=== PATIENT | female | born 1950 | race Caucasian/White ===

== ENCOUNTER 2020-01-22 11:39 | Emergency (ER) | payer MEDICARE, SELFPAY ==
--- NOTE | ~2020-01-22 | XR_ITS ---
EXAMINATION: XR chest 2V EXAM DATE: 01/22/2020 12:09 INDICATION: Cough x 2 days, denies card/lung hx; type 2 diabetic. TECHNIQUE: Frontal and lateral projections of the chest obtained and reviewed. Comparison is made to prior examination from 06/19/2017. FINDINGS: Linear left basilar atelectasis or scarring unchanged. The lungs are otherwise clear. Ther e are no pleural effusions. The cardiomediastinal silhouette is within normal limits. There is no p neumothorax suspected. The bones and soft tissues are unremarkable. IMPRESSION: No acute cardiopulmonary findings. Reviewed, dictated and finalized at location B. [employer] TRA[employer]
[2020-01-22 11:45] VITALS: BP 137/72; PULSE 93; RESP 20; TEMP 36.4; O2SAT 96
--- NOTE | 2020-01-22 11:48 | ED.GENADULT ---
HPI - General Adult General Chief complaint: Upper Respiratory Infection Stated complaint: chest hurts/cough Time Seen by Provider: 01/22/20 11:48 Source: patient Mode of arrival: ambulatory Limitations: no limitations History of Present Illness HPI narrative: 69-year-old female patient presents to the [facility] with complaints of a slight cough that started yesterday. Patient states that when she was coughing and she developed a little bit of pain to the left side of her chest that did not radiate. Patient states that the pain only occurs when she takes a deep breath in or when she coughs. Denies any fevers, body aches or chills. Patient states she did have a rapid Covid test this morning which was negative. Patient denies any abdominal pain, nausea, vomiting or diarrhea. Denies any shortness of breath at this time. Patient states she did take some Tylenol for her symptoms. Related Data Home Medications Medication Instructions Recorded Confirmed empagliflozin [Jardiance] mg 01/22/20 estradiol VAGINAL 01/22/20 folic acid 01/22/20 metformin mg PO 01/22/20 methotrexate sodium 01/22/20 simvastatin mg 01/22/20 sitagliptin [Januvia] mg 01/22/20 Allergies Allergy/AdvReac Type Severity Reaction Status Date / Time Penicillins Allergy Mild Unknown Unverified 01/22/20 11:48 hydroxychloroquine Allergy Unknown Verified 01/22/20 11:48 Review of Systems Review of Systems: Narrative: CONSTITUTIONAL: Denies fever, chills, or sweats. EYES: Denies visual changes, redness, or discharge. ENT: Denies rhinorrhea, congestion, sore throat, or otalgia. CARDIOVASCULAR: Positive left-sided chest pain, denies palpitations, or edema. RESPIRATORY: Positive mild nonproductive cough or dyspnea. GASTROINTESTINAL: Denies abdominal pain, nausea, vomiting, or diarrhea. GENITOURINARY: Denies dysuria or hematuria. SKIN: Denies rash or itching. MUSCULOSKELETAL: Denies back pain, joint pain, or myalgia. NEUROLOGIC: Denies headache, numbness, or weakness. PSYCHIATRIC: Denies anxiety or depression. [facility] Past Medical History Medical History (Updated 01/22/20 @ 12:31 by WHITLEY Arroyo) Arthritis Diabetes Eczema Hypercholesterolemia Hypertension Postmenopausal Urinary tract infection Surgical History Surgical History (Updated 01/22/20 @ 11:50 by WHITLEY Arroyo) H/O inguinal hernia repair History of section, classical X3 History of right knee joint replacement Comments At the time of my signature I agree with nursing past medical history, surgical, social, and family history. There is no relevant family history pertinent to the presenting complaint. Exam Narrative: Exam Narrative: GENERAL: Well-appearing, well-nourished, and in no acute distress. HEAD: Normocephalic, atraumatic. EYES: PERRLA and EOMI. ENT: Nares clear, no rhinorrhea or epistaxis. Mucous membranes moist. Posterior pharynx with no erythema, tonsil enlargement, exudates or lesions present. Bilateral TMs are clear with no erythema or foreign bodies to the canal. NECK: Supple. No lymphadenopathy CHEST: Clear to auscultation. No respiratory distress. Patient able talk in clear complete sentences. No tripoding noted. No tenderness over palpation of the chest wall. HEART: Regular rate and rhythm. No murmur heard. Normal peripheral pulses. ABDOMEN: Soft, nontender, nondistended, normal active bowel sounds. EXTREMITIES: Normal range of motion. No edema. SKIN: Warm, dry, no rash. NEURO: No focal deficits. Alert and oriented x3. Course Reevaluation(s) Reevaluation #1: Reevaluated patient after her x-ray and EKG had resulted. Discussed with her that her x-ray is negative for any acute pneumonia. Discussed with her that her EKG looks overall okay. Discussed with her that if she is concerned about the chest pain we can definitely send her to the emergency department for further evaluation. Discussed with her that the EKG does not show everything that
[2020-01-22 11:50] VITALS: BP 137/72; PULSE 93; RESP 20; TEMP 36.4; O2SAT 96
--- NOTE | 2020-01-22 11:55 | ECG_ITS ---
Measurements Intervals [place] Rate: 83 P: 31 MI: 187 QRS: -16 QRSD: 112 T: 29 QT: 394 QTc: 464 Interpretive Statements SINUS RHYTHM INCOMPLETE RIGHT BUNDLE BRANCH BLOCK BORDERLINE T WAVE ABNORMALITY- ANTERIOR LEADS BORDERLINE ECG Electronically Signed On 01-22-2020 12:51:24 [employer] REPRESENTATIVE by Buck Elmore D.O.
== END 2020-01-22 12:38 | disposition home or self-care (01) ==
PROVIDERS: Emergency Provider Nurse Practitioner Family
DX: J06.9 Acute upper respiratory infection, unspecified (principal); I45.10 Unspecified right bundle-branch block; E11.9 Type 2 diabetes mellitus without complications; E78.00 Pure hypercholesterolemia, unspecified; I10 Essential (primary) hypertension; Z96.651 Presence of right artificial knee joint; M19.90 Unspecified osteoarthritis, unspecified site
CPT/HCPCS: 71046; 93005; 99213; G0463

== ENCOUNTER 2023-08-18 15:08 | Outpatient (CLI) | payer MEDICARE, SELFPAY ==
--- NOTE | ~2023-08-18 | XR_ITS ---
Left Knee Technique: AP, lateral, and sunrise views were obtained. Clinical History: Polyarthritis Findings: No fracture or dislocation is seen. Moderate tricompartmental degenerative spurring present with probable mild lateral compartment narrowing. Soft tissues are unremarkable. No joint effusion i s seen. Impression: Moderate tricompartmental osteoarthritis, as detailed above. Reviewed, dictated and finalized at location . Impression: Moderate tricompartmental osteoarthritis, as detailed above.
== END 2023-08-18 15:09 | disposition home or self-care (01) ==
LOC: ANHIMG 15:13
DX: M17.12 Unilateral primary osteoarthritis, left knee (principal); M25.562 Pain in left knee
CPT/HCPCS: 73562

== ENCOUNTER 2024-05-03 09:47 | Outpatient (CLI) | payer MEDICARE, SELFPAY ==
--- NOTE | ~2024-05-03 | DEXA_ITS ---
Bone Density Report Name: TIERA ALFREDO Age: 73 Sex: Female Ethnicity: White Date of : 1950 Indication: postmenopausal; screening for osteoporosis; height loss; history of glucocorticoids; rheumatoid arthritis; Referring Provider: LORNA, COLE Olmedo Study: Bone densitometry was performed. Exam Date: May 03, 2024 Accession number: [id number] Bone Density: Region BMD T-score Z-score Classification AP Spine(L1-L4) 0.810 -2.2 0.1 Osteopenia Femoral Neck (Left) 0.567 -2.5 -0.6 Osteoporosis Total Hip (Left) 0.597 -2.8 -1.2 Osteoporosis Femoral Neck (Right) 0.585 -2.4 -0.4 Osteopenia Total Hip (Right) 0.644 -2.4 -0.8 Osteopenia Total Hip Mean 0.621 -2.6 -1.0 Osteoporosis World Health Organization criteria for BMD impression classify patients as: Normal (T-score at or above -1.0), Osteopenia (T-score between -1.0 and -2.5), or Osteoporosis (T-score at or below -2.5). 10-year Fracture Risk: FRAX not reported because: Some T-score for Spine Total or Hip Total or Femoral Neck at or below -2.5 Clinical Information Provided by Patient: Has taken Glucocorticoids Has rheumatoid arthritis Has used the following medications: Vitamin D, Calcium Patient maximum height was 67 Menopause Age: 48 No regular weight bearing exercise Drinks caffeinated beverages Onset of menses at age 13 Number of children 5 Impression: The patient has osteoporosis, based on the Left Total Hip T-score. The patient has risk factors, including: history of glucocorticoid therapy. Discussion: INCREASED RISK OF FRACTURE. BONE DENSITY IS UNDESIRABLY LOW AT ONE OR MORE SKELETAL SITES, CONSISTENT WITH POSTMENOPAUSAL OSTEOPOROSIS. This patient's lowest T-score meets the World Health Organization's (WHO) criteria for osteoporosis at one or more sites (T-score -2.5 or below). In untreated patients, the risk of osteoporotic fracture increases approximately two-fold for each 1.0 SD decrease in T-score. Low bone density is not the only risk factor for fracture; also consider factors such as patient's age, frailty or poor health, risk of falling, risk of injury, previous osteoporotic fracture, family history of osteoporosis, cigarette smoking, low body weight, etc. Not everyone with low bone mineral density has osteoporosis; osteomalacia and other metabolic bone disorders should also be considered. Patients who have osteoporosis should be evaluated for specific diseases and conditions (secondary causes) that may cause or contribute to bone loss. The [place] [employer]ocrin[employer] (AACE) and National Osteoporosis Foundation (NOF) recommend pharmacologic intervention for all postmenopausal women whose T-score is in this range. The patient should follow a healthful lifestyle (good nutrition with adequate calcium and vitamin D, and appropriate weight-bearing exercise). Follow-Up: Consider a repeat BMD and Vertebral Fracture Assessment (VFA) exam in 2 years or sooner if medically necessary, to reassess this patient's status. Reported by: NOAH on 05/03/2024 10:24:00 AM. Reviewed, dictated and finalized at location AConstanza OCHOA
== END 2024-05-03 09:48 | disposition home or self-care (01) ==
PROVIDERS: PCP Internal Medicine; Visit Provider Internal Medicine Endocrinology, Diabetes & Metabolism
DX: Z78.0 Asymptomatic menopausal state (principal); Z13.820 Encounter for screening for osteoporosis; M85.88 Other specified disorders of bone density and structure, other site; M81.0 Age-related osteoporosis without current pathological fracture; M85.851 Other specified disorders of bone density and structure, right thigh; M85.852 Other specified disorders of bone density and structure, left thigh
CPT/HCPCS: 77080